=== PATIENT | male | born 1970 | race Caucasian/White ===

== ENCOUNTER 2017-07-04 23:59 | Inpatient (IN) | payer SELFPAY ==
--- NOTE | 2017-07-05 00:28 | HP ---
COWS - Scale Resting Pulse: 1= ME 81-100 Sweatin=Flushed/Facial Moisture Restless Observation: 0= Sits Still Pupil Size: 0= Normal to Room Light Bone or Joint Aches: 4=Acute Joint/Muscle Pain Runny Nose/ Eye Tearin= Nasal Congestion GI Upset > 30mins: 0= None Tremor Observation: 2= Slight Tremor Visible Yawning Observation: 0= None Anxiety or Irritability: 2=Irritable/Anxious Goose Flesh Skin: 0=Smooth Skin COWS Score: 12 Admission ROS S - HPI Chief Complaint: "I NEED A CHANGE AND STOP USING DRUGS" Allergies/Adverse Reactions: Allergies Allergy/AdvReac Type Severity Reaction Status Date / Time No Known Allergies Allergy Verified 07/05/17 00:22 History of Present Illness: 47 Y.O. MALE WITH LONG HX/O OPIOID AND COCAINE DEPENDENCE HERE FOR DETOX. CLIENT IS KNOWN TO THIS PROGRAM. LAST HERE 2015. DENIES ANY SIGNIFICANT PERIOD OF CLEAN TIME. SELF REFERRED. Exam Limitations: No Limitations - Ebola screening Have you traveled outside of the country in the last 21 days: No (N) Have you had contact with anyone from an Ebola affected area: No Do you have a fever: No - Review of Systems Constitutional: Chills, Loss of Appetite, Malaise, Night Sweats, Changes in sleep, Unintentional Wgt. Loss EENT: reports: Dental Problems (MISSING TEETH) Respiratory: reports: No Symptoms reported Cardiac: reports: No Symptoms Reported GI: reports: Poor Appetite : reports: No Symptoms Reported Musculoskeletal: reports: Joint Pain, Muscle Pain Integumentary: reports: No Symptoms Reported Neuro: reports: Headache Endocrine: reports: No Symptoms Reported Hematology: reports: No Symptoms Reported Psychiatric: reports: Anxious, Depressed Other Systems: Reviewed and Negative Patient History - Patient Medical History Hx Anemia: No Hx Asthma: No Hx Chronic Obstructive Pulmonary Disease (COPD): No Hx Cancer: No Hx Cardiac Disorders: No Hx Congestive Heart Failure: No Hx Hypertension: No Hx Hypercholesterolemia: No Hx Pacemaker: No HX Cerebrovascular Accident: No Hx Seizures: No Hx Dementia: No Hx Diabetes: No Hx Gastrointestinal Disorders: No Hx Liver Disease: No Hx Genitourinary Disorders: No Hx Sexually Transmitted Disorders: No Hx Renal Disease (ESRD): No Hx Thyroid Disease: No Hx Human Immunodeficiency Virus (HIV): No Hx Hepatitis C: No Hx Depression: Yes (NO MED) Hx Suicide Attempt: No Hx Bipolar Disorder: No Hx Schizophrenia: No Other Medical History: ANXIETY - Patient Surgical History Past Surgical History: Yes Hx Abdominal Surgery: Yes (LEFT INGUINAL HERNIA REPAIR) Hx Orthopedic Surgery: Yes (L ankle and heel sx IN 2013) Other Surgical History: L inguinal hernia repair. Anesthesia Reaction: No - PPD History Previous Implant?: Yes Documented Results: Negative w/proof Implanted On Prior [facility] Admission?: Yes Date: 01/08/16 Results: 0MM PPD to be Administered?: Yes - Smoking Cessation Smoking history: Current every day smoker Have you smoked in the past 12 months: Yes Aproximately how many cigarettes per day: 20 Cigars Per Day: 0 Hx Chewing Tobacco Use: No Initiated information on smoking cessation: Yes 'Breaking Loose' booklet given: 07/05/17 - Substance & Tx. History Hx Alcohol Use: No Hx Substance Use: Yes Substance Use Type: Cocaine, Heroin Hx Substance Use Treatment: Yes ([facility]) - Substances Abused HEROIN Route: Inhalation Frequency: Daily Amount used: 5 BAGS Age of first use: 13 Date of Last Use: 07/05/17 COCAINE/CRACK Route: Smoking Frequency: Daily Amount used: $60 Age of first use: 17 Date of Last Use: 07/04/17 THC Route: Smoking Frequency: 3-6 times per week Amount used: 2 BLUNTS Age of first use: 13 Date of Last Use: 07/03/17 Family Disease History - Family Disease History Family Disease History: Heart Disease: Mother (), Other: Sister (DRUG ADDICTION) Admission Physical Exam [facility] Physical General Appearance: Yes: Tremorous, Anxious, Other (SOLIED) HEENTM: Yes: EOMI, Normocephalic, MARCOS, Pharynx Normal, Other (MISSING TEETH) Respiratory: Yes: Chest Non-Tender, Lungs Clear, Normal Breath Sounds, No Respiratory Distress, No Accessory Muscle Use Neck: Yes: No masses,lesions,Nodules, Supple, Trachea in good position Breast: Yes: Breast Exam Deferred Cardiology: Yes: Regular Rhythm, S1, S2, Tachycardia Abdominal: Yes: Normal Bowel Sounds, Non Tender, Flat, Soft Genitourinary: Yes: Within Normal Limits Back: Yes: Normal Inspection Musculoskeletal: Yes: full range of Motion, Gait Steady Extremities: Yes: Normal Capillary Refill, Normal Range of Motion, Non-Tender, Tremors 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 NML intact, Fully Oriented, Alert, Motor Strength 5/5 Integumentary: Yes: Normal Color, Dry, Warm Lymphatic: Yes: Within Normal Limits - Diagnostic (1) Cocaine dependence Current Visit: Yes Status: Chronic Qualifiers: Substance use status: uncomplicated Qualified Code(s): F14.20 - Cocaine dependence, uncomplicated (2) Nicotine dependence Current Visit: Yes Status: Chronic Qualifiers: Nicotine product type: cigarettes Substance use status: uncomplicated Qualified Code(s): F17.210 - Nicotine dependence, cigarettes, uncomplicated (3) Opioid dependence with withdrawal Current Visit: Yes Status: Chronic Cleared for Admission [facility] - Detox or Rehab [facility] Level of Care: Medically Managed Detox Regimen/Protocol: Methadone Claeared for Rehab Admission: No S Breath Alcohol Content Breath Alcohol Content: 0
[2017-07-05] MEDS ORDERED: NICOTINE POLACRILEX 2 MG GUM BC PRN (00:41)
[2017-07-05] MEDS ORDERED: ACETAMINOPHEN 325 MG TABLET (FP) PO PRN (00:41)
[2017-07-05] MEDS ORDERED: MAG HYDROX/AL HYDROX/SIMETH 30 ML UNIT-DOSE CUP PO PRN (00:41)
[2017-07-05] MEDS ORDERED: MENTHOL/PHENOL 1 EACH UD MM PRN (00:41)
[2017-07-05] MEDS ORDERED: guaiFENesin/D-METHORPHAN HB 10 ML UNIT-DOSE CUPS PO PRN (00:41)
[2017-07-05] MEDS ORDERED: P-EPHED 60MG/TRIPROLIDI 2.5MG TABLET PO PRN (00:41)
[2017-07-05] MEDS ORDERED: LOPERAMIDE HCL 2 MG CAPSULE PO PRN (00:41)
[2017-07-05] MEDS ORDERED: METHADONE HCL 10 MG TABLET (FOR DETOX USE ONLY) PO ONE ×3 (00:41→23:00)
[2017-07-05] MEDS ORDERED: MAGNESIUM CITRATE 300 ML BOTTLE PO PRN (00:41)
[2017-07-05] MEDS ORDERED: IBUPROFEN 400 MG TABLET (FP) PO PRN (00:41)
[2017-07-05] MEDS ORDERED: MAGNESIUM HYDROX 2400MG/30ML ORAL SUSPENSION 30 ML CUP PO PRN (00:41)
[2017-07-05] MEDS: diazePAM 5 MG TABLET PO PRN ×3 (02:08→22:26)
--- NOTE | 2017-07-05 10:02 | EKG ---
Test Reason : Blood Pressure : / mmHG Vent. Rate : 058 BPM Atrial Rate : 058 BPM P-R Int : 170 ms QRS Dur : 102 ms QT Int : 410 ms P-R-T Axes : 062 035 039 degrees QTc Int : 402 ms SINUS BRADYCARDIA WITH SINUS ARRHYTHMIA NON-SPECIFIC INTRA-VENTRICULAR CONDUCTION DELAY NO PREVIOUS ECGS AVAILABLE Confirmed by COLEEN HIRSCH MD ([id number]) on 07/05/2017 10:02:07 AM Referred By: Confirmed By:COLEEN HIRSCH MD
[2017-07-05 10:22] LABS: HEMATOCRIT 40.2 % (35.4-49); HEMOGLOBIN 13.6 GM/dL (11.7-16.9); MCHC 33.8 g/dl (32.0-35.9); MEAN CELL VOLUME 88.8 fl (80-96); MEAN PLT VOLUME 7.9 fl (7.5-11.1); PLATELET COUNT 240 K/MM3 (134-434); RBC 4.53 M/mm3 (4.00-5.60); RDW 13.3 % (11.9-15.9); WHITE BLOOD COUNT 6.9 K/mm3 (4.0-10.0)
[2017-07-05 10:27] LABS: CHLORIDE 106 mmol/L (98-107); POTASSIUM 3.9 mmol/L (3.5-5.1); SODIUM 141 mmol/L (136-145)
[2017-07-05 10:39] LABS: ALBUMIN 3.2 g/dl (3.4-5.0); ALK PHOS 54 U/L (45-117); ANION GAP 4 (8-16); BILIRUBIN,TOTAL 0.3 mg/dL (0.2-1.0); BLOOD UREA NITROGEN 18 mg/dL (7-18); CALCIUM 8.4 mg/dL (8.5-10.1); CO2 31 mmol/L (21-32); CREATININE 0.9 mg/dL (0.7-1.3); GLUCOSE,RANDOM 74 mg/dL (74-106); SGOT/AST 10 U/L (15-37); SGPT/ALT 16 U/L (12-78); TOT PROT 5.6 g/dl (6.4-8.2)
[2017-07-05] MEDS: PRENATAL VITAMINS W/ FOLIC ACID TABLET (FP) PO SCH (10:43)
[2017-07-05] MEDS: NICOTINE 21 MG/24 HOURS TOPICAL PATCH TD SCH (10:43)
--- NOTE | 2017-07-05 11:44 | PN ---
BHS COWS - Scale Resting Pulse: 0= [place] 80 or Below Sweatin= Chills/Flushing Restless Observation: 3= Extraneous Movement Pupil Size: 1= Pupils >than Normal Bone or Joint Aches: 2= Severe Diffuse Aches Runny Nose/ Eye Tearin= Runny Nose/Eyes GI Upset > 30mins: 2= Nausea/Diarrhea Tremor Observation of Outstretched Hands: 2= Slight Tremor Visible Yawning Observation: 1= 1-2x During Session Anxiety or Irritability: 2=Irritable/Anxious Goose Flesh Skin: 0=Smooth Skin COWS Score: 16 S Progress Note (SOAP) Subjective: ALERT,IRRITABLE,ANXIOUS,INTERRUPTED SLEEP,TREMOR,PAIN IN THE BODY AND BACK Objective: 07/05/17 11:41 Vital Signs Temperature 97.2 F L 07/05/17 10:00 Pulse Rate 76 07/05/17 10:00 Respiratory Rate 18 07/05/17 10:00 Blood Pressure 138/76 07/05/17 10:00 O2 Sat by Pulse Oximetry (%) EKG SINUS BRADYCARDIA WITH SINUS ARRHYTHMIA 57/MIN NO CHEST PAIN,NO SOB,NO DIZZINESS Laboratory Last Values WBC 6.9 K/mm3 (4.0-10.0) 07/05/17 08:00 RBC 4.53 M/mm3 (4.00-5.60) 07/05/17 08:00 Hgb 13.6 GM/dL (11.7-16.9) 07/05/17 08:00 Hct 40.2 % (35.4-49) 07/05/17 08:00 MCV 88.8 fl (80-96) 07/05/17 08:00 MCH 30.0 pg (25.7-33.7) 07/05/17 08:00 MCHC 33.8 g/dl (32.0-35.9) 07/05/17 08:00 RDW 13.3 % (11.9-15.9) 07/05/17 08:00 Plt Count 240 K/MM3 (134-434) 07/05/17 08:00 MPV 7.9 fl (7.5-11.1) D 07/05/17 08:00 Sodium 141 mmol/L (136-145) 07/05/17 08:00 Potassium 3.9 mmol/L (3.5-5.1) 07/05/17 08:00 Chloride 106 mmol/L (98-107) 07/05/17 08:00 Carbon Dioxide 31 mmol/L (21-32) 07/05/17 08:00 Anion Gap 4 (8-16) L 07/05/17 08:00 BUN 18 mg/dL (7-18) 07/05/17 08:00 Creatinine 0.9 mg/dL (0.7-1.3) 07/05/17 08:00 Creat Clearance w eGFR > 60 (>60) 07/05/17 08:00 Random Glucose 74 mg/dL (74-106) D 07/05/17 08:00 Calcium 8.4 mg/dL (8.5-10.1) L 07/05/17 08:00 Total Bilirubin 0.3 mg/dL (0.2-1.0) 07/05/17 08:00 AST 10 U/L (15-37) L D 07/05/17 08:00 ALT 16 U/L (12-78) D 07/05/17 08:00 Alkaline Phosphatase 54 U/L (45-117) 07/05/17 08:00 Total Protein 5.6 g/dl (6.4-8.2) L 07/05/17 08:00 Albumin 3.2 g/dl (3.4-5.0) L 07/05/17 08:00 Assessment: 07/05/17 11:43 LABS PENDING Plan: CONTINUE DETOX
[2017-07-05] MEDS ORDERED: PNEUMOCOCCAL 23 VACCINE 0.5 ML VIAL IM ONE (12:00)
[2017-07-05] MEDS ORDERED: PNEUMOC 13-VAL CONJ-DIP CRM/PF 0.5 ML DISP.SYRIN IM ONE (12:00)
[2017-07-05] MEDS ORDERED: FLU VACCINE QUAD 60 MCG/0.5 ML (MDV 17-18) IM ONE (12:00)
[2017-07-05 16:56] LABS: URINE APPEARANCE TURBID; URINE BILIRUBIN NEGATIVE (<2.0 mg/dL); URINE BLOOD NEGATIVE (NEGATIVE); URINE COLOR DKYELLOW; URINE GLUCOSE (UA) NEGATIVE (NEGATIVE); URINE KETONE NEGATIVE (NEGATIVE); URINE LEUK ESTERASE NEGATIVE (NEGATIVE); URINE NITRITE NEGATIVE (NEGATIVE); URINE PROTEIN NEGATIVE (NEGATIVE); URINE UROBILINOGEN NEGATIVE mg/dL (0.2-1.0)
[2017-07-05] MEDS: MELATONIN 5 MG TABLETS PO PRN (22:26)
[2017-07-05] MEDS: THIAMINE HCL 100 MG TABLET (FP) PO SCH (22:26)
[2017-07-06] MEDS ORDERED: METHADONE HCL 10 MG TABLET (FOR DETOX USE ONLY) PO ONE (10:00)
[2017-07-06] MEDS: PRENATAL VITAMINS W/ FOLIC ACID TABLET (FP) PO SCH (10:15)
[2017-07-06] MEDS: diazePAM 5 MG TABLET PO PRN ×2 (10:15→22:14)
[2017-07-06] MEDS: NICOTINE 21 MG/24 HOURS TOPICAL PATCH TD SCH (10:16)
[2017-07-06] MEDS: CYCLOBENZAPRINE HCL 10 MG TABLET (FP) PO PRN ×2 (14:07→22:14)
--- NOTE | 2017-07-06 15:12 | PN ---
BHS COWS - Scale Resting Pulse: 1= [place] 81-100 Sweatin= Chills/Flushing Restless Observation: 3= Extraneous Movement Pupil Size: 1= Pupils >than Normal Bone or Joint Aches: 2= Severe Diffuse Aches Runny Nose/ Eye Tearin= Runny Nose/Eyes GI Upset > 30mins: 2= Nausea/Diarrhea Tremor Observation of Outstretched Hands: 2= Slight Tremor Visible Yawning Observation: 1= 1-2x During Session Anxiety or Irritability: 2=Irritable/Anxious Goose Flesh Skin: 0=Smooth Skin COWS Score: 17 BHS Progress Note (SOAP) Subjective: ALERT,IRRITABLE,ANXIOUS,INTERRUPTED SLEEP,TREMOR,PAIN IN THE BODY AND BACK Objective: 07/06/17 15:11 Vital Signs Temperature 97.3 F L 07/06/17 11:22 Pulse Rate 58 L 07/06/17 11:22 Respiratory Rate 18 07/06/17 11:22 Blood Pressure 144/81 07/06/17 11:22 O2 Sat by Pulse Oximetry (%) Laboratory Last Values WBC 6.9 K/mm3 (4.0-10.0) 07/05/17 08:00 RBC 4.53 M/mm3 (4.00-5.60) 07/05/17 08:00 Hgb 13.6 GM/dL (11.7-16.9) 07/05/17 08:00 Hct 40.2 % (35.4-49) 07/05/17 08:00 MCV 88.8 fl (80-96) 07/05/17 08:00 MCH 30.0 pg (25.7-33.7) 07/05/17 08:00 MCHC 33.8 g/dl (32.0-35.9) 07/05/17 08:00 RDW 13.3 % (11.9-15.9) 07/05/17 08:00 Plt Count 240 K/MM3 (134-434) 07/05/17 08:00 MPV 7.9 fl (7.5-11.1) D 07/05/17 08:00 Sodium 141 mmol/L (136-145) 07/05/17 08:00 Potassium 3.9 mmol/L (3.5-5.1) 07/05/17 08:00 Chloride 106 mmol/L (98-107) 07/05/17 08:00 Carbon Dioxide 31 mmol/L (21-32) 07/05/17 08:00 Anion Gap 4 (8-16) L 07/05/17 08:00 BUN 18 mg/dL (7-18) 07/05/17 08:00 Creatinine 0.9 mg/dL (0.7-1.3) 07/05/17 08:00 Creat Clearance w eGFR > 60 (>60) 07/05/17 08:00 Random Glucose 74 mg/dL (74-106) D 07/05/17 08:00 Calcium 8.4 mg/dL (8.5-10.1) L 07/05/17 08:00 Total Bilirubin 0.3 mg/dL (0.2-1.0) 07/05/17 08:00 AST 10 U/L (15-37) L D 07/05/17 08:00 ALT 16 U/L (12-78) D 07/05/17 08:00 Alkaline Phosphatase 54 U/L (45-117) 07/05/17 08:00 Total Protein 5.6 g/dl (6.4-8.2) L 07/05/17 08:00 Albumin 3.2 g/dl (3.4-5.0) L 07/05/17 08:00 Urine Color Dkyellow 07/05/17 Unknown Urine Appearance Turbid 07/05/17 Unknown Urine pH 7.0 (5.0-8.0) D 07/05/17 Unknown Ur Specific [place] 1.020 (1.001-1.035) 07/05/17 Unknown Urine Protein Negative (NEGATIVE) 07/05/17 Unknown Urine Glucose (UA) Negative (NEGATIVE) 07/05/17 Unknown Urine Ketones Negative (NEGATIVE) 07/05/17 Unknown Urine Blood Negative (NEGATIVE) 07/05/17 Unknown Urine Nitrite Negative (NEGATIVE) 07/05/17 Unknown Urine Bilirubin Negative (<2.0 mg/dL) 07/05/17 Unknown Urine Urobilinogen Negative mg/dL (0.2-1.0) 07/05/17 Unknown Ur Leukocyte Esterase Negative (NEGATIVE) 07/05/17 Unknown RPR Titer Nonreactive (NONREACTIVE) 07/05/17 08:00 HIV 1&2 Antibody Screen Negative 07/05/17 08:00 HIV P24 Antigen Negative 07/05/17 08:00 Assessment: 07/06/17 15:11 WITHDRAWAL SYMPTOM Plan: CONTINUE DETOX
--- NOTE | 2017-07-06 16:13 | CONSULT ---
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 Substance Abuse History: Confirmed by patient in this interview. Details in current [facility] report : Smoking history: Current every day smoker. Have you smoked in the past 12 months: Yes. Aproximately how many cigarettes per day: 20. Cigars Per Day: 0. Hx Chewing Tobacco Use: No. Initiated information on smoking cessation: Yes. 'Breaking Loose' booklet given: 07/05/17. - Substance & Tx. History. Hx Alcohol Use: No. Hx Substance Use: Yes. Substance Use Type : Cocaine, Heroin. Hx Substance Use Treatment: Yes ([facility]). - Substances Abused. HEROIN. Route: Inhalation. Frequency: Daily. Amount used: 5 BAGS. Age of first use: 13. Date of Last Use: 07/05/17. COCAINE/CRACK. Route: Smoking. Frequency: Daily. Amount used: $60. Age of first use: 17. Date of Last Use: 07/04/17. THC. Route: Smoking. Frequency: 3-6 times per week. Amount used: 2 BLUNTS. Age of first use: 13. Date of Last Use: 07/03/17 Medical History: History of left inguinal herniorraphy and orthosurgery for fracture of left heel/left ankle (2012). Psychiatric History: Patient denies history of mental illness.No reported psychiatric hospitalizations or suicide attempts. Physical/Sexual Abuse/Trauma History: None reported. Additional Comment: No toxicology available on admission. Mental Status Exam - Mental Status Exam Alert and Oriented to: Time, Place, Person Cognitive Function: Good Patient Appearance: Well Groomed Mood: Hopeful, Euthymic Affect: Appropriate, Normal Range Patient Behavior: Appropriate, Cooperative Speech Pattern: Clear Voice Loudness: Normal Thought Process: Intact, Goal Oriented Thought Disorder: Not Present Hallucinations: Denies Suicidal Ideation: Denies Homicidal Ideation: Denies Insight/Judgement: Poor Sleep: Well Appetite: Good Muscle strength/Tone: Normal Gait/Station: Normal Psychiatric Findings - Problem List ([place] 1, 2,3) (1) Opioid dependence with withdrawal Current Visit: Yes Status: Acute (2) Cocaine dependence Current Visit: Yes Status: Acute Qualifiers: Substance use status: uncomplicated Qualified Code(s): F14.20 - Cocaine dependence, uncomplicated (3) Cannabis dependence Current Visit: Yes Status: Acute (4) Nicotine dependence Current Visit: Yes Status: Acute Qualifiers: Nicotine product type: cigarettes Substance use status: uncomplicated Qualified Code(s): F17.210 - Nicotine dependence, cigarettes, uncomplicated - Initial Treatment Plan Initial Treatment Plan: Psychoeducation.Detoxification.Observation.
[2017-07-06] MEDS: THIAMINE HCL 100 MG TABLET (FP) PO SCH (22:13)
[2017-07-06] MEDS: MELATONIN 5 MG TABLETS PO PRN (22:13)
[2017-07-06] MEDS: cloNIDine HCL 0.1 MG TABLET PO SCH (22:14)
[2017-07-07] MEDS ORDERED: METHADONE HCL 5 MG TABLET (FOR DETOX USE ONLY) PO ONE (10:00)
[2017-07-07] MEDS: diazePAM 5 MG TABLET PO PRN ×2 (10:04→22:15)
[2017-07-07] MEDS: cloNIDine HCL 0.1 MG TABLET PO SCH ×2 (10:04→22:15)
[2017-07-07] MEDS: PRENATAL VITAMINS W/ FOLIC ACID TABLET (FP) PO SCH (10:04)
[2017-07-07] MEDS: NICOTINE 21 MG/24 HOURS TOPICAL PATCH TD SCH (10:05)
--- NOTE | 2017-07-07 14:18 | PN ---
BHS Progress Note (SOAP) Subjective: joint ache muscle pain sweat tremor gi distress trouble sleeping restlessness anxiety Objective: 07/07/17 14:17 Vital Signs Temperature 98.1 F 07/07/17 13:13 Pulse Rate 79 07/07/17 13:13 Respiratory Rate 18 07/07/17 13:13 Blood Pressure 121/73 07/07/17 13:13 O2 Sat by Pulse Oximetry (%) Laboratory Last Values WBC 6.9 K/mm3 (4.0-10.0) 07/05/17 08:00 RBC 4.53 M/mm3 (4.00-5.60) 07/05/17 08:00 Hgb 13.6 GM/dL (11.7-16.9) 07/05/17 08:00 Hct 40.2 % (35.4-49) 07/05/17 08:00 MCV 88.8 fl (80-96) 07/05/17 08:00 MCH 30.0 pg (25.7-33.7) 07/05/17 08:00 MCHC 33.8 g/dl (32.0-35.9) 07/05/17 08:00 RDW 13.3 % (11.9-15.9) 07/05/17 08:00 Plt Count 240 K/MM3 (134-434) 07/05/17 08:00 MPV 7.9 fl (7.5-11.1) D 07/05/17 08:00 Sodium 141 mmol/L (136-145) 07/05/17 08:00 Potassium 3.9 mmol/L (3.5-5.1) 07/05/17 08:00 Chloride 106 mmol/L (98-107) 07/05/17 08:00 Carbon Dioxide 31 mmol/L (21-32) 07/05/17 08:00 Anion Gap 4 (8-16) L 07/05/17 08:00 BUN 18 mg/dL (7-18) 07/05/17 08:00 Creatinine 0.9 mg/dL (0.7-1.3) 07/05/17 08:00 Creat Clearance w eGFR > 60 (>60) 07/05/17 08:00 Random Glucose 74 mg/dL (74-106) D 07/05/17 08:00 Calcium 8.4 mg/dL (8.5-10.1) L 07/05/17 08:00 Total Bilirubin 0.3 mg/dL (0.2-1.0) 07/05/17 08:00 AST 10 U/L (15-37) L D 07/05/17 08:00 ALT 16 U/L (12-78) D 07/05/17 08:00 Alkaline Phosphatase 54 U/L (45-117) 07/05/17 08:00 Total Protein 5.6 g/dl (6.4-8.2) L 07/05/17 08:00 Albumin 3.2 g/dl (3.4-5.0) L 07/05/17 08:00 Urine Color Dkyellow 07/05/17 Unknown Urine Appearance Turbid 07/05/17 Unknown Urine pH 7.0 (5.0-8.0) D 07/05/17 Unknown Ur Specific [place] 1.020 (1.001-1.035) 07/05/17 Unknown Urine Protein Negative (NEGATIVE) 07/05/17 Unknown Urine Glucose (UA) Negative (NEGATIVE) 07/05/17 Unknown Urine Ketones Negative (NEGATIVE) 07/05/17 Unknown Urine Blood Negative (NEGATIVE) 07/05/17 Unknown Urine Nitrite Negative (NEGATIVE) 07/05/17 Unknown Urine Bilirubin Negative (<2.0 mg/dL) 07/05/17 Unknown Urine Urobilinogen Negative mg/dL (0.2-1.0) 07/05/17 Unknown Ur Leukocyte Esterase Negative (NEGATIVE) 07/05/17 Unknown RPR Titer Nonreactive (NONREACTIVE) 07/05/17 08:00 HIV 1&2 Antibody Screen Negative 07/05/17 08:00 HIV P24 Antigen Negative 07/05/17 08:00 lab noted Assessment: 07/07/17 14:18 withdrawal sx Plan: continue detox
[2017-07-07] MEDS: MELATONIN 5 MG TABLETS PO PRN (22:13)
[2017-07-07] MEDS: THIAMINE HCL 100 MG TABLET (FP) PO SCH (22:13)
[2017-07-07] MEDS: CYCLOBENZAPRINE HCL 10 MG TABLET (FP) PO PRN (22:15)
[2017-07-08 09:10] VITALS: BP 114/64; PULSE 79; TEMP 96.8
[2017-07-08] MEDS ORDERED: METHADONE HCL 5 MG TABLET (FOR DETOX USE ONLY) PO ONE (10:00)
[2017-07-08] MEDS: PRENATAL VITAMINS W/ FOLIC ACID TABLET (FP) PO SCH (10:14)
[2017-07-08] MEDS: NICOTINE 21 MG/24 HOURS TOPICAL PATCH TD SCH (10:14)
[2017-07-08] MEDS: cloNIDine HCL 0.1 MG TABLET PO SCH (10:16)
--- NOTE | 2017-07-08 11:17 | DS ---
[facility] Detox Discharge Summary Admission Date: 07/05/17 Discharge Date: 07/08/17 - History Present History: Opioid Dependence Additional Comments: 47 years old male admitted for opiate detox insists to terminate the detox regimen today that family emergency father and uncle are comatose and must leave the detox facility today encourage follow up with primary care provider in the community and if necessary utilize emergency service. patient is alert oriented x 3 steady gait no acute distress - Physical Exam Results Vital Signs: Vital Signs Temperature 96.8 F L 07/08/17 09:09 Pulse Rate 79 07/08/17 09:09 Respiratory Rate 20 07/08/17 09:09 Blood Pressure 114/64 07/08/17 09:09 O2 Sat by Pulse Oximetry (%) Pertinent Admission Physical Exam Findings: withdrawal sx Vital Signs Temperature 96.8 F L 07/08/17 09:09 Pulse Rate 79 07/08/17 09:09 Respiratory Rate 20 07/08/17 09:09 Blood Pressure 114/64 07/08/17 09:09 O2 Sat by Pulse Oximetry (%) Laboratory Last Values WBC 6.9 K/mm3 (4.0-10.0) 07/05/17 08:00 RBC 4.53 M/mm3 (4.00-5.60) 07/05/17 08:00 Hgb 13.6 GM/dL (11.7-16.9) 07/05/17 08:00 Hct 40.2 % (35.4-49) 07/05/17 08:00 MCV 88.8 fl (80-96) 07/05/17 08:00 MCH 30.0 pg (25.7-33.7) 07/05/17 08:00 MCHC 33.8 g/dl (32.0-35.9) 07/05/17 08:00 RDW 13.3 % (11.9-15.9) 07/05/17 08:00 Plt Count 240 K/MM3 (134-434) 07/05/17 08:00 MPV 7.9 fl (7.5-11.1) D 07/05/17 08:00 Sodium 141 mmol/L (136-145) 07/05/17 08:00 Potassium 3.9 mmol/L (3.5-5.1) 07/05/17 08:00 Chloride 106 mmol/L (98-107) 07/05/17 08:00 Carbon Dioxide 31 mmol/L (21-32) 07/05/17 08:00 Anion Gap 4 (8-16) L 07/05/17 08:00 BUN 18 mg/dL (7-18) 07/05/17 08:00 Creatinine 0.9 mg/dL (0.7-1.3) 07/05/17 08:00 Creat Clearance w eGFR > 60 (>60) 07/05/17 08:00 Random Glucose 74 mg/dL (74-106) D 07/05/17 08:00 Calcium 8.4 mg/dL (8.5-10.1) L 07/05/17 08:00 Total Bilirubin 0.3 mg/dL (0.2-1.0) 07/05/17 08:00 AST 10 U/L (15-37) L D 07/05/17 08:00 ALT 16 U/L (12-78) D 07/05/17 08:00 Alkaline Phosphatase 54 U/L (45-117) 07/05/17 08:00 Total Protein 5.6 g/dl (6.4-8.2) L 07/05/17 08:00 Albumin 3.2 g/dl (3.4-5.0) L 07/05/17 08:00 Urine Color Dkyellow 07/05/17 Unknown Urine Appearance Turbid 07/05/17 Unknown Urine pH 7.0 (5.0-8.0) D 07/05/17 Unknown Ur Specific [place] 1.020 (1.001-1.035) 07/05/17 Unknown Urine Protein Negative (NEGATIVE) 07/05/17 Unknown Urine Glucose (UA) Negative (NEGATIVE) 07/05/17 Unknown Urine Ketones Negative (NEGATIVE) 07/05/17 Unknown Urine Blood Negative (NEGATIVE) 07/05/17 Unknown Urine Nitrite Negative (NEGATIVE) 07/05/17 Unknown Urine Bilirubin Negative (<2.0 mg/dL) 07/05/17 Unknown Urine Urobilinogen Negative mg/dL (0.2-1.0) 07/05/17 Unknown Ur Leukocyte Esterase Negative (NEGATIVE) 07/05/17 Unknown RPR Titer Nonreactive (NONREACTIVE) 07/05/17 08:00 HIV 1&2 Antibody Screen Negative 07/05/17 08:00 HIV P24 Antigen Negative 07/05/17 08:00 lab noted - Treatment Hospital Course: Detox Protocol Followed, Responded well Patient has Accepted a Rehab Referral to: as per counselor arranged - Medication Discharge Medications: Ambulatory Orders NK [No Known Home Medication] 01/06/16 - Diagnosis (1) Opioid dependence with withdrawal Status: Acute - AMA Did Patient Leave Against Medical Advice: Yes
[2017-07-09] MEDS ORDERED: METHADONE HCL 10 MG TABLET (FOR DETOX USE ONLY) PO ONE (10:00)
[2017-07-10] MEDS ORDERED: METHADONE HCL 5 MG TABLET (FOR DETOX USE ONLY) PO ONE (06:00)
== END 2017-07-08 10:40 | disposition left against medical advice (07) | DRG 770 ==
LOC: YASAS 23:59 → Y6N 07-05 00:38
PROVIDERS: ADMIT Internal Medicine; ATTEND Internal Medicine
PROC: HZ2ZZZZ Detoxification Services for Substance Abuse Treatment (ICD-10-PCS; principal; 2017-07-05)
DX: F11.23 Opioid dependence with withdrawal (principal); F14.20 Cocaine dependence, uncomplicated; F12.20 Cannabis dependence, uncomplicated; F17.210 Nicotine dependence, cigarettes, uncomplicated; F32.9 Major depressive disorder, single episode, unspecified; Z59.0 Homelessness
CPT/HCPCS: 36415; 80053; 81003; 85027; 86593; 87389; 90688; 90732; 93005; 93010; G0008; G0009; J0735

== ENCOUNTER 2021-09-20 12:12 | Inpatient (IN) | payer OTHER ==
[2021-09-20] MEDS ORDERED: BUPRENORPHINE HCL 150 MCG, BUPRENORPHINE HCL 75 MCG BC PRN (13:21)
[2021-09-20] MEDS ORDERED: MAGNESIUM CITRATE 300 ML BOTTLE PO PRN (13:21)
[2021-09-20] MEDS ORDERED: MAGNESIUM HYDROX 2400MG/30ML ORAL SUSPENSION 30 ML CUP PO PRN (13:21)
[2021-09-20] MEDS ORDERED: MAG HYDROX/AL HYDROX/SIMETH 30 ML UNIT-DOSE CUP PO PRN (13:21)
[2021-09-20] MEDS ORDERED: IBUPROFEN 600 MG TABLET (FP) PO PRN (13:21)
[2021-09-20] MEDS ORDERED: BENZOCAINE/MENTHOL (CHLORASEPTIC ) LOZENGE MM PRN (13:21)
[2021-09-20] MEDS ORDERED: LOPERAMIDE HCL 2 MG CAPSULE PO PRN (13:21)
[2021-09-20] MEDS ORDERED: BISMUTH SUBSALICYLATE 262 MG/15 ML BTL PO PRN (13:21)
[2021-09-20] MEDS ORDERED: ACETAMINOPHEN 325 MG TABLET (FP) PO PRN ×2 (13:21)
[2021-09-20] MEDS ORDERED: ONDANSETRON *ODT* 4 MG TABLET SL PRN (13:21)
[2021-09-20] MEDS ORDERED: DICYCLOMINE HCL 10 MG CAPSULE PO PRN (13:21)
[2021-09-20] MEDS ORDERED: IBUPROFEN 400 MG TABLET (FP) PO PRN (13:21)
[2021-09-20 14:23] VITALS: BMI 19.4
[2021-09-20] MEDS ORDERED: BUPRENORPHINE HCL 150 MCG, BUPRENORPHINE HCL 75 MCG BC ONE (14:30)
[2021-09-20] MEDS ORDERED: cloNIDine HCL 0.1 MG TABLET PO ONE (14:30)
[2021-09-20] MEDS ORDERED: BUPRENORPHINE HCL 150 MCG FILM BC ONE (14:47)
[2021-09-20] MEDS ORDERED: hydrOXYzine PAMOATE 25 MG CAPSULE (FP) PO ONE (14:48)
[2021-09-20] MEDS ORDERED: BUPRENORPHINE HCL 75 MCG FILM BC ONE (14:48)
[2021-09-20] MEDS ORDERED: cloNIDine HCL 0.1 MG TABLET ONE (14:48)
[2021-09-20] MEDS: hydrOXYzine PAMOATE 25 MG CAPSULE (FP) PO SCH ×3 (14:51→22:12)
[2021-09-20] MEDS: PRENATAL VITAMINS W/ FOLIC ACID TABLET (FP) PO SCH (15:40)
[2021-09-20] MEDS: NICOTINE 14 MG/24 HOURS TOPICAL PATCH TD SCH (15:40)
[2021-09-20 16:02] LABS: ALBUMIN 3.6 g/dl (3.4-5.0); BLOOD UREA NITROGEN 14.1 mg/dL (7-18)
[2021-09-20 16:03] LABS: HEMATOCRIT 39.7 % (35.4-49); HEMOGLOBIN 13.4 GM/dL (11.7-16.9); MCHC 33.7 g/dl (32.0-35.9); MEAN CELL VOLUME 86.1 fl (80-96); MEAN PLT VOLUME 7.8 fl (7.5-11.1); PLATELET COUNT 280 10^3/uL (134-434); RBC 4.62 M/mm3 (4.00-5.60); RDW 13.6 % (11.9-15.9); WHITE BLOOD COUNT 8.2 K/mm3 (4.0-10.0)
[2021-09-20 16:06] LABS: CREATININE 0.8 mg/dL (0.55-1.3)
[2021-09-20 16:07] LABS: BILIRUBIN,TOTAL 0.7 mg/dL (0.2-1); TOT PROT 6.7 g/dl (6.4-8.2)
[2021-09-20] MEDS ORDERED: cloNIDine HCL 0.1 MG TABLET PO PRN (17:22)
[2021-09-20] MEDS: THIAMINE HCL 100 MG TABLET (FP) PO SCH (22:12)
[2021-09-20] MEDS: MELATONIN 5 MG TABLETS PO SCH (22:12)
[2021-09-20] MEDS: diazePAM 5 MG TABLET PO PRN (22:13)
[2021-09-21] MEDS ORDERED: BUPRENORPHINE HCL 150 MCG, BUPRENORPHINE HCL 75 MCG BC PRN
[2021-09-21] MEDS: hydrOXYzine PAMOATE 25 MG CAPSULE (FP) PO SCH ×5 (05:21→22:11)
[2021-09-21] MEDS ORDERED: BUPRENORPHINE HCL 150 MCG FILM BC ONE ×2 (05:22→17:06)
[2021-09-21] MEDS ORDERED: BUPRENORPHINE HCL 75 MCG FILM BC ONE ×2 (05:22→17:06)
[2021-09-21] MEDS: BUPRENORPHINE HCL 150 MCG, BUPRENORPHINE HCL 75 MCG BC SCH ×2 (05:23→18:00)
[2021-09-21] MEDS: NICOTINE 14 MG/24 HOURS TOPICAL PATCH TD SCH (09:56)
[2021-09-21] MEDS: PRENATAL VITAMINS W/ FOLIC ACID TABLET (FP) PO SCH (09:57)
[2021-09-21] MEDS: THIAMINE HCL 100 MG TABLET (FP) PO SCH (22:11)
[2021-09-21] MEDS: MELATONIN 5 MG TABLETS PO SCH (22:11)
[2021-09-21] MEDS: diazePAM 5 MG TABLET PO PRN (22:12)
[2021-09-22] MEDS: hydrOXYzine PAMOATE 25 MG CAPSULE (FP) PO SCH ×5 (05:25→22:12)
[2021-09-22] MEDS: BUPRENORPHINE HCL 450 MCG FILM BC SCH ×2 (05:25→17:45)
[2021-09-22] MEDS: NICOTINE 10 MG CARTRIDGE (INHALER) IH PRN ×3 (06:05→19:45)
[2021-09-22] MEDS: NICOTINE 14 MG/24 HOURS TOPICAL PATCH TD SCH (10:08)
[2021-09-22] MEDS: PRENATAL VITAMINS W/ FOLIC ACID TABLET (FP) PO SCH (10:08)
[2021-09-22] MEDS: diazePAM 5 MG TABLET PO PRN (13:17)
[2021-09-22] MEDS: THIAMINE HCL 100 MG TABLET (FP) PO SCH (22:12)
[2021-09-22] MEDS: MELATONIN 5 MG TABLETS PO SCH (22:12)
[2021-09-22] MEDS: METHOCARBAMOL 500 MG TABLET PO PRN (22:12)
[2021-09-23] MEDS: hydrOXYzine PAMOATE 25 MG CAPSULE (FP) PO SCH ×5 (05:11→22:54)
[2021-09-23] MEDS: BUPRENORPHINE/NALOXONE 4 MG/1 MG FILM PACKET SL SCH ×2 (05:12→17:45)
[2021-09-23] MEDS: NICOTINE 10 MG CARTRIDGE (INHALER) IH PRN ×2 (07:38→14:47)
[2021-09-23] MEDS: PRENATAL VITAMINS W/ FOLIC ACID TABLET (FP) PO SCH (10:07)
[2021-09-23] MEDS: NICOTINE 14 MG/24 HOURS TOPICAL PATCH TD SCH (10:07)
[2021-09-23] MEDS: METHOCARBAMOL 500 MG TABLET PO PRN (10:07)
[2021-09-23] MEDS: MELATONIN 5 MG TABLETS PO SCH (22:54)
[2021-09-23] MEDS: THIAMINE HCL 100 MG TABLET (FP) PO SCH (22:54)
[2021-09-24] MEDS: hydrOXYzine PAMOATE 25 MG CAPSULE (FP) PO SCH ×2 (05:28→09:37)
[2021-09-24] MEDS ORDERED: BUPRENORPHINE/NALOXONE 8 MG/2 MG FILM PACKET SL ONE (06:00)
[2021-09-24] MEDS: NICOTINE 10 MG CARTRIDGE (INHALER) IH PRN (06:10)
[2021-09-24] MEDS: NICOTINE 14 MG/24 HOURS TOPICAL PATCH TD SCH (09:37)
[2021-09-24] MEDS: PRENATAL VITAMINS W/ FOLIC ACID TABLET (FP) PO SCH (09:37)
[2021-09-24 09:58] VITALS: BP 136/63; PULSE 73; TEMP 98
== END 2021-09-24 09:46 | disposition home or self-care (01) | DRG 773 ==
LOC: YASAS 12:12 → Y3N 13:56
PROVIDERS: ADMIT Allergy & Immunology; ATTEND Surgery
PROC: HZ2ZZZZ Detoxification Services for Substance Abuse Treatment (ICD-10-PCS; principal; 2021-09-20)
DX: F11.23 Opioid dependence with withdrawal (principal); F14.20 Cocaine dependence, uncomplicated; F12.20 Cannabis dependence, uncomplicated; F17.210 Nicotine dependence, cigarettes, uncomplicated; F32.A Depression, unspecified; Z59.01 Sheltered homelessness
CPT/HCPCS: 36415; 80053; 85027; 86780; 87811; 93005; 93010; C9803-CS; J0735; U0003; U0005

== ENCOUNTER 2021-12-02 08:24 | Inpatient (IN) | payer OTHER ==
[~2021-12-02 08:24] MED LIST: ACETAMINOPHEN 325 MG TABLET (FP) PO PRN; BENZOCAINE/MENTHOL (CHLORASEPTIC ) LOZENGE MM PRN; BISMUTH SUBSALICYLATE 524 MG/30 ML PO PRN; DICYCLOMINE HCL 10 MG CAPSULE PO PRN; IBUPROFEN 400 MG TABLET (FP) PO PRN; IBUPROFEN 600 MG TABLET (FP) PO PRN; LOPERAMIDE HCL 2 MG CAPSULE PO PRN; MAG HYDROX/AL HYDROX/SIMETH 30 ML UNIT-DOSE CUP PO PRN; MAGNESIUM CITRATE 300 ML BOTTLE PO PRN; MAGNESIUM HYDROX 2400MG/30ML ORAL SUSPENSION 30 ML CUP PO PRN; METHOCARBAMOL 500 MG TABLET PO PRN; NICOTINE POLACRILEX 2 MG GUM BUC PRN; ONDANSETRON *ODT* 4 MG TABLET SL PRN; P-EPHED 60MG/TRIPROLIDI 2.5MG TABLET PO PRN; guaiFENesin 200 MG/10 ML 10 ML UNIT-DOSE CUPS PO PRN; hydrOXYzine PAMOATE 25 MG CAPSULE (FP) PO PRN
[2021-12-02] MEDS ORDERED: cloNIDine HCL 0.1 MG TABLET PO ONE (09:45)
[2021-12-02] MEDS ORDERED: BUPRENORPHINE HCL 150 MCG, BUPRENORPHINE HCL 75 MCG BC ONE (09:45)
[2021-12-02] MEDS ORDERED: BUPRENORPHINE HCL 150 MCG, BUPRENORPHINE HCL 75 MCG BC PRN (09:45)
[2021-12-02 10:43] VITALS: RESP 18
[2021-12-02] MEDS ORDERED: BUPRENORPHINE HCL 150 MCG FILM BC ONE (11:02)
[2021-12-02] MEDS ORDERED: BUPRENORPHINE HCL 75 MCG FILM BC ONE (11:03)
[2021-12-02] MEDS ORDERED: cloNIDine HCL 0.1 MG TABLET ONE (11:03)
[2021-12-02] MEDS ORDERED: cloNIDine HCL 0.1 MG TABLET PO PRN (13:45)
[2021-12-02] MEDS: NICOTINE 14 MG/24 HOURS TOPICAL PATCH TD SCH (13:57)
[2021-12-02] MEDS: MELATONIN 5 MG TABLETS PO SCH ×2 (13:58→21:27)
[2021-12-02] MEDS: PRENATAL VITAMINS W/ FOLIC ACID TABLET (FP) PO SCH (13:58)
[2021-12-02] MEDS: THIAMINE HCL 100 MG TABLET (FP) PO SCH ×2 (13:58→21:27)
[2021-12-02 14:24] LABS: HEMATOCRIT 41.9 % (35.4-49); HEMOGLOBIN 14.3 GM/dL (11.7-16.9); MCH 29.7 pg (25.7-33.7); MCHC 34.2 g/dl (32.0-35.9); MEAN CELL VOLUME 86.9 fl (80-96); MEAN PLT VOLUME 8.1 fl (7.5-11.1); PLATELET COUNT 252 10^3/uL (134-434); RBC 4.82 M/mm3 (4.00-5.60); RDW 13.6 % (11.9-15.9); WHITE BLOOD COUNT 6.8 K/mm3 (4.0-10.0)
[2021-12-02 14:25] LABS: ALBUMIN 3.6 g/dl (3.4-5.0); BLOOD UREA NITROGEN 17.1 mg/dL (7-18)
[2021-12-02 14:28] LABS: CREATININE 0.8 mg/dL (0.55-1.3)
[2021-12-02 14:30] LABS: TOT PROT 6.2 g/dl (6.4-8.2)
[2021-12-02 14:31] LABS: BILIRUBIN,TOTAL 0.8 mg/dL (0.2-1)
[2021-12-02] MEDS: NICOTINE 10 MG CARTRIDGE (INHALER) IH PRN (15:49)
[2021-12-02] MEDS: diazePAM 5 MG TABLET PO PRN (19:17)
[2021-12-03] MEDS ORDERED: BUPRENORPHINE HCL 150 MCG, BUPRENORPHINE HCL 75 MCG BC PRN
[2021-12-03] MEDS: NICOTINE 10 MG CARTRIDGE (INHALER) IH PRN ×2 (05:57→10:29)
[2021-12-03] MEDS ORDERED: BUPRENORPHINE HCL 150 MCG, BUPRENORPHINE HCL 75 MCG BC SCH (06:00)
[2021-12-03 08:54] VITALS: BP 121/82; PULSE 59; TEMP 97.3
[2021-12-03] MEDS: diazePAM 5 MG TABLET PO PRN (10:27)
[2021-12-03] MEDS: PRENATAL VITAMINS W/ FOLIC ACID TABLET (FP) PO SCH (10:27)
[2021-12-03] MEDS: NICOTINE 14 MG/24 HOURS TOPICAL PATCH TD SCH (10:29)
[2021-12-04] MEDS ORDERED: BUPRENORPHINE HCL 450 MCG FILM BC SCH (06:00)
[2021-12-05] MEDS ORDERED: BUPRENORPHINE/NALOXONE 4 MG/1 MG FILM PACKET SL SCH (06:00)
[2021-12-06] MEDS ORDERED: BUPRENORPHINE/NALOXONE 8 MG/2 MG FILM PACKET SL ONE (06:00)
== END 2021-12-03 12:36 | disposition left against medical advice (07) | DRG 770 ==
LOC: YASAS 08:24 → Y3N 12:08
PROVIDERS: ADMIT Allergy & Immunology; ATTEND Surgery
PROC: HZ2ZZZZ Detoxification Services for Substance Abuse Treatment (ICD-10-PCS; principal; 2021-12-02)
DX: F11.23 Opioid dependence with withdrawal (principal); F14.20 Cocaine dependence, uncomplicated; F12.20 Cannabis dependence, uncomplicated; F17.210 Nicotine dependence, cigarettes, uncomplicated; F19.24 Other psychoactive substance dependence with psychoactive substance-induced mood disorder; E87.8 Other disorders of electrolyte and fluid balance, not elsewhere classified; R73.9 Hyperglycemia, unspecified; Z28.310 Unvaccinated for COVID-19; Z28.9 Immunization not carried out for unspecified reason; Z59.01 Sheltered homelessness
CPT/HCPCS: 36415; 80053; 85027; 86780; C9803-CS; U0003; U0005

== ENCOUNTER 2022-01-29 09:12 | Inpatient (IN) | payer OTHER ==
[2022-01-29 10:11] VITALS: BMI 19.1
[2022-01-29] MEDS ORDERED: MAGNESIUM CITRATE 300 ML BOTTLE PO PRN (11:57)
[2022-01-29] MEDS ORDERED: ACETAMINOPHEN 325 MG TABLET (FP) PO PRN ×2 (11:57)
[2022-01-29] MEDS ORDERED: IBUPROFEN 600 MG TABLET (FP) PO PRN (11:57)
[2022-01-29] MEDS ORDERED: DICYCLOMINE HCL 10 MG CAPSULE PO PRN (11:57)
[2022-01-29] MEDS ORDERED: BENZOCAINE/MENTHOL (CHLORASEPTIC ) LOZENGE MM PRN (11:57)
[2022-01-29] MEDS ORDERED: LOPERAMIDE HCL 2 MG CAPSULE PO PRN (11:57)
[2022-01-29] MEDS ORDERED: ONDANSETRON *ODT* 4 MG TABLET SL PRN (11:57)
[2022-01-29] MEDS ORDERED: MAG HYDROX/AL HYDROX/SIMETH 30 ML UNIT-DOSE CUP PO PRN (11:57)
[2022-01-29] MEDS ORDERED: NALOXONE HCL (KLOXXADO) 8 MG SPRAY NS PRN (11:57)
[2022-01-29] MEDS ORDERED: MAGNESIUM HYDROX 2400MG/30ML ORAL SUSPENSION 30 ML CUP PO PRN (11:57)
[2022-01-29] MEDS ORDERED: IBUPROFEN 400 MG TABLET (FP) PO PRN (11:57)
[2022-01-29] MEDS ORDERED: BISMUTH SUBSALICYLATE 262 MG/15 ML BTL PO PRN (11:57)
[2022-01-29] MEDS: PRENATAL VITAMINS W/ FOLIC ACID TABLET (FP) PO SCH (12:16)
[2022-01-29 15:26] LABS: HEMATOCRIT 41.6 % (35.4-49); HEMOGLOBIN 14.3 GM/dL (11.7-16.9); MCH 29.4 pg (25.7-33.7); MCHC 34.4 g/dl (32.0-35.9); MEAN CELL VOLUME 85.5 fl (80-96); MEAN PLT VOLUME 7.5 fl (7.5-11.1); PLATELET COUNT 251 10^3/uL (134-434); RBC 4.87 M/mm3 (4.00-5.60); RDW 13.1 % (11.9-15.9); WHITE BLOOD COUNT 5.1 K/mm3 (4.0-10.0)
[2022-01-29 15:27] LABS: CALCIUM 9.2 mg/dL (8.5-10.1)
[2022-01-29 15:28] LABS: ALBUMIN 3.9 g/dl (3.4-5.0); BLOOD UREA NITROGEN 16.4 mg/dL (7-18)
[2022-01-29 15:33] LABS: BILIRUBIN,TOTAL 0.6 mg/dL (0.2-1); TOT PROT 6.8 g/dl (6.4-8.2)
[2022-01-29] MEDS: METHOCARBAMOL 500 MG TABLET PO PRN (22:03)
[2022-01-29] MEDS: THIAMINE HCL 100 MG TABLET (FP) PO SCH (22:04)
[2022-01-29] MEDS: MELATONIN 5 MG TABLETS PO SCH (22:04)
[2022-01-29] MEDS: hydrOXYzine PAMOATE 25 MG CAPSULE (FP) PO PRN (22:23)
[2022-01-30] MEDS ORDERED: BUPRENORPHINE HCL 150 MCG, BUPRENORPHINE HCL 75 MCG BC PRN (09:38)
[2022-01-30] MEDS ORDERED: BUPRENORPHINE HCL 150 MCG, BUPRENORPHINE HCL 75 MCG BC ONE (10:00)
[2022-01-30] MEDS ORDERED: cloNIDine HCL 0.1 MG TABLET PO ONE (10:00)
[2022-01-30] MEDS: METHOCARBAMOL 500 MG TABLET PO PRN (10:15)
[2022-01-30] MEDS: PRENATAL VITAMINS W/ FOLIC ACID TABLET (FP) PO SCH (10:15)
[2022-01-30] MEDS ORDERED: cloNIDine HCL 0.1 MG TABLET PO PRN (13:39)
[2022-01-30] MEDS: diazePAM 5 MG TABLET PO PRN ×2 (14:20→22:25)
[2022-01-30] MEDS: NICOTINE 10 MG CARTRIDGE (INHALER) IH PRN (17:59)
[2022-01-30] MEDS: hydrOXYzine PAMOATE 25 MG CAPSULE (FP) PO PRN (22:26)
[2022-01-30] MEDS: THIAMINE HCL 100 MG TABLET (FP) PO SCH (22:26)
[2022-01-30] MEDS: MELATONIN 5 MG TABLETS PO SCH (22:26)
[2022-01-31] MEDS ORDERED: BUPRENORPHINE HCL 150 MCG, BUPRENORPHINE HCL 75 MCG BC PRN
[2022-01-31] MEDS: BUPRENORPHINE HCL 150 MCG, BUPRENORPHINE HCL 75 MCG BC SCH ×2 (05:41→17:34)
[2022-01-31] MEDS: NICOTINE 10 MG CARTRIDGE (INHALER) IH PRN (08:13)
[2022-01-31] MEDS: PRENATAL VITAMINS W/ FOLIC ACID TABLET (FP) PO SCH (10:05)
[2022-01-31] MEDS: diazePAM 5 MG TABLET PO PRN ×2 (10:07→17:37)
[2022-01-31] MEDS: THIAMINE HCL 100 MG TABLET (FP) PO SCH (22:20)
[2022-01-31] MEDS: hydrOXYzine PAMOATE 25 MG CAPSULE (FP) PO PRN (22:20)
[2022-01-31] MEDS: MELATONIN 5 MG TABLETS PO SCH (22:20)
[2022-02-01] MEDS: diazePAM 5 MG TABLET PO PRN (05:29)
[2022-02-01] MEDS: NICOTINE 10 MG CARTRIDGE (INHALER) IH PRN (05:39)
[2022-02-01] MEDS ORDERED: BUPRENORPHINE HCL 450 MCG FILM BC SCH (06:00)
[2022-02-01 09:55] VITALS: BP 123/84; PULSE 109; RESP 20; TEMP 98
[2022-02-02] MEDS ORDERED: BUPRENORPHINE/NALOXONE 4 MG/1 MG FILM PACKET SL SCH (06:00)
[2022-02-03] MEDS ORDERED: BUPRENORPHINE/NALOXONE 8 MG/2 MG FILM PACKET SL ONE (06:00)
== END 2022-02-01 09:49 | disposition left against medical advice (07) | DRG 770 ==
LOC: SUATTDRO 09:12 → YASAS 09:12 → UNDOADMIN 11:58 → Y3N 11:58 → UNDODISIN 02-01 09:49
PROVIDERS: ADMIT Allergy & Immunology; ATTEND Surgery
PROC: HZ2ZZZZ Detoxification Services for Substance Abuse Treatment (ICD-10-PCS; principal; 2022-01-29)
DX: F11.23 Opioid dependence with withdrawal (principal); F14.20 Cocaine dependence, uncomplicated; F12.20 Cannabis dependence, uncomplicated; F17.210 Nicotine dependence, cigarettes, uncomplicated; Z28.310 Unvaccinated for COVID-19; Z28.9 Immunization not carried out for unspecified reason
CPT/HCPCS: 36415; 80053; 85027; 86780; 87811; C9803-CS; U0003; U0005

== ENCOUNTER 2024-02-10 16:05 | Inpatient (IN) | payer OTHER ==
[2024-02-10 16:37] VITALS: BMI 19.3
[2024-02-10] MEDS ORDERED: ONDANSETRON *ODT* 4 MG TABLET SL PRN (17:16)
[2024-02-10] MEDS ORDERED: POLYETHYLENE GLYCOL (HEALTHYLAX) 3350 17 GM PACKET PO PRN (17:16)
[2024-02-10] MEDS ORDERED: MAG HYDROX/AL HYDROX/SIMETH 30 ML UNIT-DOSE CUP PO PRN (17:16)
[2024-02-10] MEDS ORDERED: MAGNESIUM HYDROX 2400MG/30ML ORAL SUSPENSION 30 ML CUP PO PRN (17:16)
[2024-02-10] MEDS ORDERED: NICOTINE POLACRILEX 2 MG GUM BUC PRN (17:16)
[2024-02-10] MEDS ORDERED: BISMUTH SUBSALICYLATE 524 MG/30 ML PO PRN (17:16)
[2024-02-10] MEDS ORDERED: IBUPROFEN 400 MG TABLET (FP) PO PRN (17:16)
[2024-02-10] MEDS ORDERED: ACETAMINOPHEN 325 MG TABLET (FP) PO PRN (17:16)
[2024-02-10] MEDS ORDERED: NALOXONE (NYS OPIOID OVERDOSE PROGRAM) 4 MG/0.1 ML SPRAY NS PRN (17:16)
[2024-02-10] MEDS ORDERED: NALOXONE (NARCAN) HCL 4 MG/0.1 ML SPRAY NS PRN (17:16)
[2024-02-10] MEDS ORDERED: hydrOXYzine PAMOATE 25 MG CAPSULE (FP) PO PRN (17:16)
[2024-02-10] MEDS ORDERED: DICYCLOMINE HCL 10 MG CAPSULE PO PRN (17:16)
[2024-02-10] MEDS ORDERED: BENZOCAINE/MENTHOL (CHLORASEPTIC ) LOZENGE MM PRN (17:16)
[2024-02-10] MEDS ORDERED: P-EPHED 60MG/TRIPROLIDI 2.5MG TABLET PO PRN (17:16)
[2024-02-10] MEDS ORDERED: IBUPROFEN 600 MG TABLET (FP) PO PRN (17:16)
[2024-02-10] MEDS ORDERED: BENZONATATE 200 MG CAPSULE PO PRN (17:16)
[2024-02-10] MEDS ORDERED: LOPERAMIDE HCL 2 MG CAPSULE PO PRN (17:16)
[2024-02-10] MEDS ORDERED: guaiFENesin 600 MG TABLET.ER (FP) PO PRN (17:16)
[2024-02-10] MEDS: cloNIDine HCL 0.1 MG TABLET PO PRN (20:25)
[2024-02-10] MEDS: METHOCARBAMOL 500 MG TABLET PO PRN (20:26)
[2024-02-10] MEDS: methaDONE HCL 10 MG TABLET (FOR DETOX USE ONLY) PO ONE (20:27)
[2024-02-10] MEDS: THIAMINE 100 MG TABLET PO SCH (23:04)
[2024-02-10] MEDS: MELATONIN 5 MG TABLETS PO SCH (23:04)
[2024-02-10] MEDS: CHLORHEXIDINE GLUCONATE 0.12% 15ML CUP MM SCH (23:05)
[2024-02-11] MEDS: PRENATAL VITAMINS W/ FOLIC ACID TABLET (FP) PO SCH (10:04)
[2024-02-11] MEDS: NICOTINE 14 MG/24 HOURS TOPICAL PATCH TD SCH (10:08)
[2024-02-11 11:16] LABS: HEMATOCRIT 36.8 % (35.4-49); HEMOGLOBIN 12.2 GM/dL (11.7-16.9); MCH 29.6 pg (25.7-33.7); MCHC 33.1 g/dl (32.0-35.9); MEAN CELL VOLUME 89.2 fl (80-96); MEAN PLT VOLUME 7.5 fl (7.5-11.1); PLATELET COUNT 270 10^3/uL (134-434); RBC 4.12 M/mm3 (4.00-5.60); RDW 13.8 % (11.9-15.9); WHITE BLOOD COUNT 6.5 K/mm3 (4.0-10.0)
[2024-02-11 12:07] LABS: CHLORIDE 108 mmol/L (98-107); POTASSIUM 4.2 mmol/L (3.5-5.1); SODIUM 141 mmol/L (136-145)
[2024-02-11 12:27] LABS: ANION GAP 4 mmol/L (4-13); BLOOD UREA NITROGEN 16.8 mg/dL (7-18); CALCIUM 9.1 mg/dL (8.5-10.1); CO2 29 mmol/L (21-32); GLUCOSE,RANDOM 111 mg/dL (74-106)
[2024-02-11 12:29] LABS: SGOT/AST 11 U/L (15-37); SGPT/ALT 19 U/L (13-61)
[2024-02-11 12:30] LABS: BILIRUBIN,TOTAL 0.3 mg/dL (0.2-1); CREATININE 0.8 mg/dL (0.55-1.3)
[2024-02-11 12:31] LABS: TOT PROT 5.9 g/dl (6.4-8.2)
[2024-02-11 12:32] LABS: ALK PHOS 65 U/L (45-117)
[2024-02-11] MEDS: FLU VACCINE (FLULAVAL) PF 45 MCG/0.5 ML SYRINGE 2024-2025 IM ONE (12:39)
[2024-02-11] MEDS: BACITRACIN 0.9 GM PACKET TP SCH (22:10)
[2024-02-11] MEDS: POLYMYXIN B SULFATE/TMP 10 ML OPHTHALMIC SOLUTION OS SCH (23:39)
[2024-02-12] MEDS: AMOX TR/POT CLAV 875MG/125MG TABLETS (FP) PO SCH (07:23)
[2024-02-12] MEDS: methaDONE HCL 10 MG TABLET (FOR DETOX USE ONLY) PO ONE (09:45)
[2024-02-12] MEDS: BACITRACIN 3.5 GM OPTHALMIC OINT TUBE OS SCH (23:29)
[2024-02-14 06:04] VITALS: BP 122/61; PULSE 63; RESP 16; TEMP 98.9
[2024-02-14] MEDS ORDERED: methaDONE HCL 10 MG TABLET (FOR DETOX USE ONLY) PO ONE ×2 (10:00)
== END 2024-02-14 07:15 | disposition home or self-care (01) | DRG 773 ==
LOC: YASAS 16:05 → Y3N 17:34
PROVIDERS: ADMIT Allergy & Immunology; ATTEND Surgery
PROC: HZ2ZZZZ Detoxification Services for Substance Abuse Treatment (ICD-10-PCS; principal; 2024-02-10)
DX: F11.23 Opioid dependence with withdrawal (principal); F14.20 Cocaine dependence, uncomplicated; F17.210 Nicotine dependence, cigarettes, uncomplicated; S09.8XXD Other specified injuries of head, subsequent encounter; V19.9XXD Pedal cyclist (driver) (passenger) injured in unspecified traffic accident, subsequent encounter
CPT/HCPCS: 36415; 80053; 80305; 80307; 85027; 86780; 90656; 93005; 93010; G0008

== ENCOUNTER 2024-04-24 17:45 | Inpatient (IN) | payer OTHER ==
[2024-04-24] MEDS ORDERED: NICOTINE POLACRILEX 2 MG GUM BUC PRN (19:00)
[2024-04-24] MEDS ORDERED: ACETAMINOPHEN 325 MG TABLET (FP) PO PRN (19:00)
[2024-04-24] MEDS ORDERED: BENZOCAINE/MENTHOL (CHLORASEPTIC ) LOZENGE MM PRN (19:00)
[2024-04-24] MEDS ORDERED: guaiFENesin 600 MG TABLET.ER (FP) PO PRN (19:00)
[2024-04-24] MEDS ORDERED: NALOXONE (NARCAN) HCL 4 MG/0.1 ML SPRAY NS PRN (19:00)
[2024-04-24] MEDS ORDERED: MAG HYDROX/AL HYDROX/SIMETH 30 ML UNIT-DOSE CUP PO PRN (19:00)
[2024-04-24] MEDS ORDERED: IBUPROFEN 600 MG TABLET (FP) PO PRN (19:00)
[2024-04-24] MEDS ORDERED: IBUPROFEN 400 MG TABLET (FP) PO PRN (19:00)
[2024-04-24] MEDS ORDERED: MAGNESIUM HYDROX 2400MG/30ML ORAL SUSPENSION 30 ML CUP PO PRN (19:00)
[2024-04-24] MEDS ORDERED: BENZONATATE 200 MG CAPSULE PO PRN (19:00)
[2024-04-24] MEDS ORDERED: hydrOXYzine PAMOATE 25 MG CAPSULE (FP) PO PRN (19:00)
[2024-04-24] MEDS ORDERED: POLYETHYLENE GLYCOL (HEALTHYLAX) 3350 17 GM PACKET PO PRN (19:00)
[2024-04-24] MEDS ORDERED: LOPERAMIDE HCL 2 MG CAPSULE PO PRN (19:00)
[2024-04-24] MEDS: MELATONIN 5 MG TABLETS PO SCH (22:18)
[2024-04-24] MEDS: THIAMINE 100 MG TABLET PO SCH (22:18)
[2024-04-25 09:24] LABS: HEMATOCRIT 42.6 % (35.4-49); HEMOGLOBIN 13.7 GM/dL (11.7-16.9); MCHC 32.1 g/dl (32.0-35.9); MEAN CELL VOLUME 87.2 fl (80-96); MEAN PLT VOLUME 7.7 fl (7.5-11.1); PLATELET COUNT 229 10^3/uL (134-434); RBC 4.89 M/mm3 (4.00-5.60); RDW 13.6 % (11.9-15.9); WHITE BLOOD COUNT 7.9 K/mm3 (4.0-10.0)
[2024-04-25] MEDS: methaDONE HCL 40 MG DISPERSABLE TABLET PO SCH (09:25)
[2024-04-25] MEDS: PRENATAL VITAMINS W/ FOLIC ACID TABLET (FP) PO SCH (09:26)
[2024-04-25] MEDS: NICOTINE 14 MG/24 HOURS TOPICAL PATCH TD SCH (09:26)
[2024-04-25 09:53] LABS: URINE APPEARANCE CLEAR; URINE BILIRUBIN NEGATIVE (NEGATIVE); URINE COLOR YELLOW; URINE GLUCOSE (UA) NEGATIVE (NEGATIVE); URINE KETONE NEGATIVE (NEGATIVE); URINE LEUK ESTERASE NEGATIVE (NEGATIVE); URINE NITRITE NEGATIVE (NEGATIVE); URINE PROTEIN NEGATIVE (NEGATIVE); URINE UROBILINOGEN 0.2 mg/dL (0.2-1.0)
[2024-04-25 11:49] LABS: POTASSIUM 4.4 mmol/L (3.5-5.1)
[2024-04-25 11:51] LABS: ALBUMIN 3.2 g/dl (3.4-5.0); BLOOD UREA NITROGEN 11.3 mg/dL (7-18); CALCIUM 9.1 mg/dL (8.5-10.1)
[2024-04-25 11:54] LABS: CREATININE 0.8 mg/dL (0.55-1.3)
[2024-04-25 11:56] LABS: BILIRUBIN,TOTAL 0.3 mg/dL (0.2-1); TOT PROT 5.9 g/dl (6.4-8.2)
[2024-04-28 06:44] VITALS: RESP 18
[2024-04-29 06:40] VITALS: BP 117/70; PULSE 81; TEMP 97.3
== END 2024-04-29 13:15 | disposition home or self-care (01) | DRG 772 ==
LOC: YASAS 17:45 → Y3NR 19:51 → Y5N 19:58
PROVIDERS: ADMIT Allergy & Immunology; ATTEND Psychiatry & Neurology Pain Medicine
PROC: HZ42ZZZ Group Counseling for Substance Abuse Treatment, Cognitive-Behavioral (ICD-10-PCS; principal; 2024-04-24)
DX: F14.20 Cocaine dependence, uncomplicated (principal); F11.20 Opioid dependence, uncomplicated; F12.20 Cannabis dependence, uncomplicated; F17.210 Nicotine dependence, cigarettes, uncomplicated; F19.24 Other psychoactive substance dependence with psychoactive substance-induced mood disorder; F32.A Depression, unspecified; Z59.02 Unsheltered homelessness
CPT/HCPCS: 36415; 80053; 80305; 80307; 81003; 85027; 86780; 87811; 93005; 93010